=== PATIENT | female | born 1990 | race Hispanic/Latino ===

== ENCOUNTER 2019-04-24 10:25 | Emergency (ER) | payer OTHER, SELFPAY | END 2019-04-24 11:15 | disposition home or self-care (01) | LOC: BURERS 10:25 | DX: M77.11 Lateral epicondylitis, right elbow (principal); J45.909 Unspecified asthma, uncomplicated; F41.9 Anxiety disorder, unspecified; F32.9 Major depressive disorder, single episode, unspecified; F17.210 Nicotine dependence, cigarettes, uncomplicated; Z79.51 Long term (current) use of inhaled steroids | CPT/HCPCS: 99283 ==

== ENCOUNTER 2019-04-28 14:09 | Outpatient (CLI) | payer OTHER ==
--- NOTE | 2019-04-28 15:02 | RAD ---
XR Cerv Sp Ap Lat STANDARD History: Ulnar neuropathy Comparison: None. Findings: 2 mm C2 over C3 anterolisthesis. Mild uncinate process hypertrophy C4-C6. No acute fracture . Prevertebral soft tissues are unremarkable. Impression: Low-grade C2/C3 anterolisthesis. No acute osseous abnormality.
== END 2019-04-28 14:10 | disposition home or self-care (01) ==
LOC: BURRAD 14:09
PROVIDERS: ATTEND Physician Assistant
DX: G56.21 Lesion of ulnar nerve, right upper limb (principal); M43.12 Spondylolisthesis, cervical region
CPT/HCPCS: 72040